=== PATIENT | male | born 1950 | race Two or more races ===

== ENCOUNTER 2019-02-28 21:19 | Emergency (ER) | payer OTHER ==
[~2019-02-28] VITALS: Ht 170.2 cm; Wt 77.1 kg
[2019-02-28] MEDS ORDERED: METOPROLOL SUC100 MG (22:05)
[2019-02-28] MEDS ORDERED: CARDEZARTAN (22:07)
[2019-02-28] MEDS ORDERED: [UNRECOGNIZED DRUG - OTHER] (22:08)
[2019-02-28] MEDS ORDERED: CARDURA XL4 MG (22:08)
== END 2019-03-01 03:53 | disposition home or self-care (01) ==
LOC: ER 21:19
DX: I16.1 Hypertensive emergency (principal); I10 Essential (primary) hypertension

== ENCOUNTER → 2019-07-19 | Emergency (ER) | payer OTHER ==
[~2019-07-19] MED LIST: CARDEZARTAN; CARDURA XL4 MG; METOPROLOL SUC100 MG; [UNRECOGNIZED DRUG - OTHER]
== END | disposition left against medical advice (07) ==
LOC: ER 14:38
DX: Z53.20 Procedure and treatment not carried out because of patient's decision for unspecified reasons (principal)